=== PATIENT | female | born 1975 | race Caucasian/White ===

== ENCOUNTER 2018-06-10 23:04 | Emergency (ER) | payer MEDICARE, OTHER ==
[~2018-06-10] VITALS: Ht 160 cm; Wt 115.9 kg
[~2018-06-10 23:04] MED LIST: CABE0.5T2 PO; HYDR-3705 PO; INSU100V SQ; METF-960 PO; ROSU20 PO
[2018-06-10 23:24] LABS: GLUCOSE,POINT OF CARE 311 MG/DL (70-110)
[2018-06-10] MEDS ORDERED: BACL10TA PO (23:43)
[2018-06-10] MEDS ORDERED: LISI-662 PO (23:43)
[2018-06-10] MEDS ORDERED: CABE0.5T2 PO (23:43)
[2018-06-10] MEDS ORDERED: GABA-531 PO (23:43)
[2018-06-10] MEDS ORDERED: INSU100I15 SQ ×3 (23:43)
[2018-06-10] MEDS ORDERED: HYDR-4455 PO (23:43)
[2018-06-10] MEDS ORDERED: AMLO-512 PO (23:43)
[2018-06-11 00:59] LABS: BASOPHILS % (AUTO) 0.6 % (0.0-2.0); EOSINOPHILS % (AUTO) 2.7 % (1.0-6.0); HEMATOCRIT 36.9 % (36-46); HEMOGLOBIN 11.8 g/dL (12.0-16.0); LYMPHOCYTES # (AUTO) 1.7 K/uL (1.0-4.8); LYMPHOCYTES % (AUTO) 25.1 % (22.0-44.0); MEAN CORPUSCULAR HEMOGLOBIN 24.5 pg (26.0-34.0); MEAN CORPUSCULAR HGB CONC 31.8 G/dL (31.0-37.0); MEAN CORPUSCULAR VOLUME 77 fL (80-100); MONOCYTES # (AUTO) 0.6 K/uL (0.1-1.0); MONOCYTES % (AUTO) 8.4 % (2.0-9.0); NEUTROPHILS # (AUTO) 4.2 K/uL (1.8-7.7); NEUTROPHILS % (AUTO) 63.2 % (40.0-70.0); PLATELET COUNT (AUTO) 339 K/uL (150-450); RED CELL DISTRIBUTION WIDTH 14.6 % (11.5-14.5)
[2018-06-11 01:09] LABS: ANION GAP 9 mmol/L (8-16); CALCIUM, TOTAL 9.4 mg/dL (8.8-10.5); CARBON DIOXIDE 27 mmol/L (22-29); CHLORIDE 102 mmol/L (98-107); CREATININE 1.29 mg/dL (0.60-1.30); GLOMERULAR FILTR. RATE CALC 45 mL/min (>60); GLUCOSE,RANDOM 329 mg/dL (70-110); POTASSIUM 5.3 mmol/L (3.5-5.1); SODIUM SERUM 138 mmol/L (136-145); UREA NITROGEN, BLOOD 16 mg/dL (7-18)
[2018-06-11 01:17] LABS: APPEARANCE,URINE CLOUDY (CLEAR); BILIRUBIN,URINE NEGATIVE (NEGATIVE); GLUCOSE, URINE (UA) >=1000 mg/dL (NEGATIVE); KETONES,URINE NEGATIVE (NEGATIVE); LEUKOCYTE ESTERASE ,URINE NEGATIVE (NEGATIVE); NITRATE,URINE NEGATIVE (NEGATIVE); OCCULT BLOOD,URINE MODERATE (NEGATIVE); PH,URINE 5.5 (5.0-8.0); PROTEIN,URINE SEE CONFIRM (NEGATIVE); UROBILINOGEN,URINE 0.2 mg/dL (<=1.0)
[2018-06-11 01:21] LABS: AMPHET/METH SCREEN,URINE NEGATIVE (NEGATIVE); BARBITURATE SCREEN, URINE NEGATIVE (NEGATIVE); BENZODIAZEPINES SCREEN,URINE NEGATIVE (NEGATIVE); CANNABINOID SCREEN,URINE NEGATIVE (NEGATIVE); COCAINE SCREEN,URINE NEGATIVE (NEGATIVE); METHADONE SCREEN, URINE NEGATIVE (NEGATIVE); OPIATE SCREEN,URINE POSITIVE (NEGATIVE); PHENCYCLIDINE SCREEN,URINE NEGATIVE (NEGATIVE)
[2018-06-11 01:22] LABS: ALANINE AMINOTRANSFERASE 45 U/L (12-78); ALKALINE PHOSPHATASE 65 U/L (46-116); ASPARTATE AMINOTRANSFERASE 21 U/L (15-37); BILIRUBIN,TOTAL 0.4 mg/dL (0.1-1.0); HCG,QUANTITATIVE < 1 mIU/mL (0-6); LIPASE 82 U/L (73-393); TOTAL PROTEIN, SERUM 7.9 g/dL (6.4-8.2)
[2018-06-11 01:27] LABS: BACTERIA,URINE Rare /HPF (None Seen)
[2018-06-11 01:28] LABS: SULFOSALICYLIC ACID,URINE 4+ (Negative); YEAST,URINE Rare /HPF (None Seen)
[2018-06-11 01:29] LABS: SQUAMOUS EPITHELIAL CELL,UR Moderate /LPF (None Seen)
[2018-06-11] MEDS ORDERED: SODIUM CHLORIDE 0.9% 1,000 ML IV ONE (01:30)
[2018-06-11] MEDS ORDERED: ACETAMINOPHEN 500 MG TABLET PO ONE (01:30)
[2018-06-11] MEDS ORDERED: KETOROLAC TROMETHAMINE 30 MG/ML VIAL IVP ONE (01:30)
[2018-06-11] MEDS ORDERED: ONDANSETRON HCL 4 MG/2 ML VIAL IVP ONE (01:30)
[2018-06-11] MEDS ORDERED: DIPHENOXYLATE/ATROP 2.5-0.025 MG TABLET PO ONE (01:30)
[2018-06-11 02:46] VITALS: BP 141/90
== END 2018-06-11 02:50 | disposition home or self-care (01) ==
LOC: EMS 23:05
DX: N39.0 Urinary tract infection, site not specified (principal); E11.43 Type 2 diabetes mellitus with diabetic autonomic (poly)neuropathy; E11.65 Type 2 diabetes mellitus with hyperglycemia; K31.84 Gastroparesis; K21.9 Gastro-esophageal reflux disease without esophagitis; E66.9 Obesity, unspecified; F31.9 Bipolar disorder, unspecified; E78.00 Pure hypercholesterolemia, unspecified; I10 Essential (primary) hypertension; G89.29 Other chronic pain; Z88.0 Allergy status to penicillin; Z88.6 Allergy status to analgesic agent; Z88.8 Allergy status to other drugs, medicaments and biological substances; Z79.4 Long term (current) use of insulin; Z79.899 Other long term (current) drug therapy; Z68.42 Body mass index [BMI] 45.0-49.9, adult
CPT/HCPCS: 36415; 80053; 80307; 81001; 82962; 83690; 84702; 85025; 96361; 96374; 96375; 99283; G0480; J1885; J2405; J7030

== ENCOUNTER 2018-10-24 06:50 | Emergency (ER) | payer MEDICARE, OTHER ==
[~2018-10-24] VITALS: Ht 160 cm; Wt 116.4 kg
[~2018-10-24 06:50] MED LIST changes: +AMLO-512 PO; +BACL10TA PO; +GABA-531 PO; -HYDR-3705 PO; +HYDR-4455 PO; +INSU100I15 SQ; -INSU100V SQ; +LISI-662 PO; -METF-960 PO; -ROSU20 PO; +ROSU20TA23 PO
[2018-10-24 07:04] LABS: GLUCOSE,POINT OF CARE 147 MG/DL (70-110)
[2018-10-24] MEDS ORDERED: KETOROLAC TROMETHAMINE 30 MG/ML VIAL IM ONE (08:15)
[2018-10-24] MEDS ORDERED: PB/HYOSCY/ATR/SCOP/LIDO/MAALOX 55 ML BOTTLE PO ONE (08:15)
[2018-10-24 08:42] LABS: BASOPHILS % (AUTO) 0.7 % (0.0-2.0); EOSINOPHILS % (AUTO) 3.4 % (1.0-6.0); HEMATOCRIT 31.1 % (36-46); HEMOGLOBIN 10.1 g/dL (12.0-16.0); LYMPHOCYTES % (AUTO) 29.5 % (22.0-44.0); MEAN CORPUSCULAR HEMOGLOBIN 24.2 pg (26.0-34.0); MEAN CORPUSCULAR HGB CONC 32.5 G/dL (31.0-37.0); MEAN CORPUSCULAR VOLUME 75 fL (80-100); MONOCYTES # (AUTO) 0.6 K/uL (0.1-1.0); MONOCYTES % (AUTO) 9.5 % (2.0-9.0); NEUTROPHILS # (AUTO) 3.8 K/uL (1.8-7.7); NEUTROPHILS % (AUTO) 56.9 % (40.0-70.0); PLATELET COUNT (AUTO) 314 K/uL (150-450); RED BLOOD CELL COUNT(AUTO) 4.17 MIL/uL (4.00-5.20)
[2018-10-24 08:52] LABS: CALCIUM, TOTAL 9.1 mg/dL (8.8-10.5); CREATININE 1.68 mg/dL (0.60-1.30); POTASSIUM 4.3 mmol/L (3.5-5.1)
[2018-10-24 08:58] LABS: ALBUMIN 3.1 g/dL (3.4-5.0); BILIRUBIN,TOTAL 0.1 mg/dL (0.1-1.0); TOTAL PROTEIN, SERUM 6.5 g/dL (6.4-8.2)
[2018-10-24 09:55] VITALS: BP 143/84
== END 2018-10-24 10:21 | disposition home or self-care (01) ==
LOC: EMS 06:54
DX: R10.13 Epigastric pain (principal); N28.9 Disorder of kidney and ureter, unspecified; E11.9 Type 2 diabetes mellitus without complications; E78.00 Pure hypercholesterolemia, unspecified; I10 Essential (primary) hypertension; F31.9 Bipolar disorder, unspecified; Z79.899 Other long term (current) drug therapy; Z88.6 Allergy status to analgesic agent; Z88.1 Allergy status to other antibiotic agents; Z88.8 Allergy status to other drugs, medicaments and biological substances
CPT/HCPCS: 36415; 71045; 80053; 82962; 83690; 84484; 85025; 93005; 96372; 99284; J1885

== ENCOUNTER 2019-02-01 03:50 | Emergency (ER) | payer MEDICARE, OTHER ==
[~2019-02-01] VITALS: Ht 160 cm; Wt 115.9 kg
[~2019-02-01 03:50] MED LIST changes: -AMLO-512 PO; +AMLO10TA7 PO
[2019-02-01] MEDS ORDERED: METO50 PO (04:00)
[2019-02-01 04:10] LABS: GLUCOSE,POINT OF CARE 198 MG/DL (70-110)
[2019-02-01] MEDS ORDERED: KETOROLAC TROMETHAMINE 60 MG/2 ML VIAL IM ONE (05:15)
[2019-02-01 05:24] LABS: APPEARANCE,URINE CLEAR (CLEAR); BILIRUBIN,URINE NEGATIVE (NEGATIVE); GLUCOSE, URINE (UA) 100 mg/dL (NEGATIVE); KETONES,URINE NEGATIVE (NEGATIVE); LEUKOCYTE ESTERASE ,URINE NEGATIVE (NEGATIVE); NITRATE,URINE NEGATIVE (NEGATIVE); OCCULT BLOOD,URINE SMALL (NEGATIVE); PH,URINE 5.5 (5.0-8.0); PROTEIN,URINE SEE CONFIRM (NEGATIVE); UROBILINOGEN,URINE 0.2 mg/dL (<=1.0)
[2019-02-01 05:27] LABS: SULFOSALICYLIC ACID,URINE 3+ (Negative)
[2019-02-01 05:38] LABS: BACTERIA,URINE Few /HPF (None Seen); SQUAMOUS EPITHELIAL CELL,UR Rare /LPF (None Seen); WBC,URINE 0-2 /HPF (0-5)
[2019-02-01 06:05] VITALS: BP 155/89
== END 2019-02-01 06:08 | disposition home or self-care (01) ==
LOC: EMS 03:51
DX: R10.30 Lower abdominal pain, unspecified (principal); I10 Essential (primary) hypertension; E11.9 Type 2 diabetes mellitus without complications; E78.00 Pure hypercholesterolemia, unspecified; F31.9 Bipolar disorder, unspecified; Z88.1 Allergy status to other antibiotic agents; Z88.6 Allergy status to analgesic agent; Z88.8 Allergy status to other drugs, medicaments and biological substances; Z79.4 Long term (current) use of insulin; Z79.899 Other long term (current) drug therapy
CPT/HCPCS: 81001; 82962; 96372; 99283; J1885

== ENCOUNTER 2019-05-14 04:44 | Emergency (ER) | payer MEDICARE, OTHER ==
[~2019-05-14] VITALS: Ht 160 cm; Wt 115.9 kg
[~2019-05-14 04:44] MED LIST changes: -AMLO10TA7 PO; +METO50 PO
[2019-05-14] MEDS ORDERED: Fioricet PO (04:52)
[2019-05-14 05:13] LABS: GLUCOSE,POINT OF CARE 112 MG/DL (70-110)
[2019-05-14] MEDS ORDERED: CloNIDine HCL 0.2 MG TABLET PO ONE (05:30)
[2019-05-14] MEDS ORDERED: LORazepam 1 MG TABLET PO ONE (05:30)
[2019-05-14 06:06] VITALS: BP 174/74
[2019-05-14 06:07] LABS: BASOPHILS % (AUTO) 0.7 % (0.0-2.0); EOSINOPHILS % (AUTO) 3.5 % (1.0-6.0); HEMATOCRIT 35.2 % (36-46); HEMOGLOBIN 11.2 g/dL (12.0-16.0); LYMPHOCYTES # (AUTO) 2.2 K/uL (1.0-4.8); LYMPHOCYTES % (AUTO) 31.7 % (22.0-44.0); MEAN CORPUSCULAR HGB CONC 31.7 G/dL (31.0-37.0); MEAN CORPUSCULAR VOLUME 76 fL (80-100); MONOCYTES # (AUTO) 0.6 K/uL (0.1-1.0); MONOCYTES % (AUTO) 8.7 % (2.0-9.0); NEUTROPHILS # (AUTO) 3.9 K/uL (1.8-7.7); NEUTROPHILS % (AUTO) 55.4 % (40.0-70.0); PLATELET COUNT (AUTO) 334 K/uL (150-450); RED BLOOD CELL COUNT(AUTO) 4.66 MIL/uL (4.00-5.20); RED CELL DISTRIBUTION WIDTH 13.9 % (11.5-14.5)
[2019-05-14 06:22] LABS: CALCIUM, TOTAL 9.1 mg/dL (8.8-10.5); CREATININE 1.57 mg/dL (0.60-1.30); POTASSIUM 4.5 mmol/L (3.5-5.1)
[2019-05-14 06:28] LABS: ALBUMIN 3.6 g/dL (3.4-5.0); BILIRUBIN,TOTAL 0.2 mg/dL (0.1-1.0); TOTAL PROTEIN, SERUM 7.3 g/dL (6.4-8.2)
== END 2019-05-14 06:50 | disposition home or self-care (01) ==
LOC: EMS 04:44
DX: I10 Essential (primary) hypertension (principal); R20.2 Paresthesia of skin; F31.9 Bipolar disorder, unspecified; E11.9 Type 2 diabetes mellitus without complications; E78.00 Pure hypercholesterolemia, unspecified; G89.29 Other chronic pain; Z88.0 Allergy status to penicillin; Z88.6 Allergy status to analgesic agent; Z88.8 Allergy status to other drugs, medicaments and biological substances; Z79.4 Long term (current) use of insulin; Z79.899 Other long term (current) drug therapy
CPT/HCPCS: 93005

== ENCOUNTER 2019-07-27 10:23 | Emergency (ER) | payer MEDICARE, OTHER ==
[~2019-07-27] VITALS: Ht 167.6 cm; Wt 100.0 kg
[~2019-07-27 10:23] MED LIST changes: +Fioricet PO
[2019-07-27] MEDS ORDERED: ACETAMINOPHEN 500 MG TABLET PO ONE (11:15)
[2019-07-27] MEDS ORDERED: CLINDAMYCIN HCL 150 MG CAPSULE PO ONE (11:15)
[2019-07-27 11:32] LABS: GLUCOSE,POINT OF CARE 65 MG/DL (70-110)
[2019-07-27 11:55] VITALS: BP 127/81
[2019-07-27 12:20] LABS: GLUCOSE,POINT OF CARE 94 MG/DL (70-110)
== END 2019-07-27 12:11 | disposition home or self-care (01) ==
LOC: EMS 10:24
DX: K02.9 Dental caries, unspecified (principal); I10 Essential (primary) hypertension; E11.9 Type 2 diabetes mellitus without complications; E78.00 Pure hypercholesterolemia, unspecified; F31.9 Bipolar disorder, unspecified; Z88.1 Allergy status to other antibiotic agents; Z88.6 Allergy status to analgesic agent; Z88.8 Allergy status to other drugs, medicaments and biological substances; Z79.4 Long term (current) use of insulin; Z79.899 Other long term (current) drug therapy

== ENCOUNTER 2019-07-29 04:06 | Emergency (ER) | payer MEDICARE, OTHER ==
[~2019-07-29] VITALS: Ht 160 cm; Wt 112.7 kg
[2019-07-29 04:19] VITALS: BP 160/80
[2019-07-29 04:39] LABS: GLUCOSE,POINT OF CARE 109 MG/DL (70-110)
== END 2019-07-29 04:59 | disposition left against medical advice (07) ==
LOC: EMS 04:06
DX: R51 Headache (principal); Z53.21 Procedure and treatment not carried out due to patient leaving prior to being seen by health care provider

== ENCOUNTER 2019-08-22 22:13 | Inpatient (IN) | payer MEDICARE, OTHER ==
[~2019-08-22] VITALS: Ht 160 cm; Wt 107.5 kg
[2019-08-22] MEDS ORDERED: METO50 PO (22:28)
[2019-08-22] MEDS ORDERED: NITROGLYCERIN 0.4 MG SUBLINGUAL TABLET #25 SL ONE (23:15)
[2019-08-22] MEDS ORDERED: CLOPIDOGREL BISULFATE 75 MG TABLET PO ONE (23:15)
[2019-08-23 00:18] LABS: BASOPHILS % (AUTO) 0.8 % (0.0-2.0); HEMATOCRIT 35.7 % (36-46); HEMOGLOBIN 11.3 g/dL (12.0-16.0); LYMPHOCYTES % (AUTO) 22.3 % (22.0-44.0); MEAN CORPUSCULAR HEMOGLOBIN 23.8 pg (26.0-34.0); MEAN CORPUSCULAR HGB CONC 31.7 G/dL (31.0-37.0); MEAN CORPUSCULAR VOLUME 75 fL (80-100); MONOCYTES # (AUTO) 0.7 K/uL (0.1-1.0); MONOCYTES % (AUTO) 7.2 % (2.0-9.0); NEUTROPHILS # (AUTO) 6.2 K/uL (1.8-7.7); NEUTROPHILS % (AUTO) 67.7 % (40.0-70.0); PLATELET COUNT (AUTO) 343 K/uL (150-450); RED BLOOD CELL COUNT(AUTO) 4.75 MIL/uL (4.00-5.20); RED CELL DISTRIBUTION WIDTH 14.4 % (11.5-14.5)
[2019-08-23 00:24] LABS: ANION GAP 12 mmol/L (8-16); CALCIUM, TOTAL 9.6 mg/dL (8.8-10.5); CARBON DIOXIDE 23 mmol/L (22-29); CHLORIDE 103 mmol/L (98-107); CREATININE 1.47 mg/dL (0.60-1.30); GLOMERULAR FILTR. RATE CALC 47 mL/min (>60); GLUCOSE,RANDOM 139 mg/dL (70-110); POTASSIUM 4.8 mmol/L (3.5-5.1); SODIUM SERUM 138 mmol/L (136-145); UREA NITROGEN, BLOOD 28 mg/dL (7-18)
[2019-08-23 00:39] LABS: ALANINE AMINOTRANSFERASE 34 U/L (12-78); ALBUMIN 3.5 g/dL (3.4-5.0); ALKALINE PHOSPHATASE 68 U/L (46-116); ASPARTATE AMINOTRANSFERASE 16 U/L (15-37); BILIRUBIN,TOTAL 0.2 mg/dL (0.1-1.0); HCG,QUANTITATIVE < 1 mIU/mL (0-6); LIPASE 68 U/L (73-393); TOTAL PROTEIN, SERUM 7.5 g/dL (6.4-8.2)
[2019-08-23] MEDS ORDERED: ONDANSETRON HCL 4 MG/2 ML VIAL IVP PRN (00:45)
[2019-08-23] MEDS ORDERED: 0.9% SODIUM CHLORIDE 10 ML SYRINGE IVP PRN ×2 (00:45→17:00)
[2019-08-23] MEDS ORDERED: NITROGLYCERIN 2% (1 GM=INCH) PACKET TP ONE (01:00)
[2019-08-23 01:11] LABS: INR 0.9 (0.9-1.1); PROTHROMBIN TIME 9.6 SEC (9.4-11.6)
[2019-08-23 01:27] LABS: CREATINE KINASE, TOTAL ONLY 323 U/L (26-192)
[2019-08-23] MEDS ORDERED: MORPHINE SULFATE 2 MG/ML SYRINGE IVP ONE (01:30)
[2019-08-23] MEDS ORDERED: METOPROLOL TARTRATE 50 MG TABLET PO ONE (01:30)
[2019-08-23] MEDS ORDERED: ZOLPIDEM TARTRATE 5 MG TABLET PO ONE (01:30)
[2019-08-23] MEDS ORDERED: ONDANSETRON HCL 4 MG/2 ML VIAL IVP ONE (01:30)
[2019-08-23 01:49] LABS: B-TYPE NATRIURETIC PEPTIDE 164 pg/mL (0-100)
[2019-08-23] MEDS: ACETAMINOPHEN 325 MG TABLET PO PRN ×2 (04:26→08:38)
[2019-08-23 05:03] VITALS: BP 150/84
[2019-08-23 07:59] VITALS: BP 153/79
[2019-08-23 11:11] VITALS: BP 151/79
[2019-08-23] MEDS ORDERED: MORPHINE SULFATE 2 MG/ML SYRINGE IVP PRN (11:45)
[2019-08-23] MEDS ORDERED: DEXTROSE 50%-WATER 25 GM/50 ML SYRINGE IVP PRN (11:45)
[2019-08-23] MEDS ORDERED: GABAPENTIN 300 MG CAPSULE PO PRN (11:45)
[2019-08-23] MEDS: INSULIN LISPRO 100 UNITS/ML SQ PRN ×3 (12:19→22:24)
[2019-08-23] MEDS: NITROGLYCERIN 2% (1 GM=INCH) PACKET TP SCH ×3 (14:20→23:00)
[2019-08-23] MEDS: METOPROLOL TARTRATE 50 MG TABLET PO SCH ×2 (14:31→20:51)
[2019-08-23] MEDS: LISINOPRIL 20 MG TABLET PO SCH (14:32)
[2019-08-23] MEDS: HYDROCODONE/ACETAMINOPHEN 10-325 MG TABLET PO SCH ×2 (14:32→20:52)
[2019-08-23] MEDS: BACLOFEN 10 MG TABLET PO SCH ×2 (14:32→20:52)
[2019-08-23] MEDS: ROSUVASTATIN CALCIUM 20 MG TABLET PO SCH (14:33)
[2019-08-23 15:03] VITALS: BP 171/88
[2019-08-23] MEDS ORDERED: ACETAMINOPHEN 325 MG TABLET PO PRN (17:00)
[2019-08-23] MEDS ORDERED: MAGNESIUM HYDROXIDE SUSPENSION 30 ML UDCUP PO PRN (17:00)
[2019-08-23] MEDS ORDERED: OxyCODONE HCL/ACETAMINOPHEN 5-325 MG TABLET PO PRN ×2 (17:00)
[2019-08-23 19:51] VITALS: BP 142/77
[2019-08-23] MEDS: DOCUSATE SODIUM 100 MG CAPSULE PO SCH (20:51)
[2019-08-23] MEDS: CLOPIDOGREL BISULFATE 75 MG TABLET PO SCH (20:52)
[2019-08-23] MEDS: ZOLPIDEM TARTRATE 5 MG TABLET PO SCH (22:59)
[2019-08-23 23:32] VITALS: BP 139/80
[2019-08-24 04:26] VITALS: BP 156/75
[2019-08-24 05:15] LABS: GLUCOMETER DEV NAME(LOC) 5N.1; GLUCOSE,POINT OF CARE 230 MG/DL (70-110)
[2019-08-24] MEDS: NITROGLYCERIN 2% (1 GM=INCH) PACKET TP SCH ×2 (05:41→08:59)
[2019-08-24] MEDS: INSULIN LISPRO 100 UNITS/ML SQ PRN ×5 (06:03→22:16)
[2019-08-24 06:49] LABS: BASOPHILS % (AUTO) 0.9 % (0.0-2.0); EOSINOPHILS % (AUTO) 2.3 % (1.0-6.0); HEMATOCRIT 32.7 % (36-46); HEMOGLOBIN 10.3 g/dL (12.0-16.0); LYMPHOCYTES # (AUTO) 1.6 K/uL (1.0-4.8); LYMPHOCYTES % (AUTO) 22.1 % (22.0-44.0); MEAN CORPUSCULAR HEMOGLOBIN 23.8 pg (26.0-34.0); MEAN CORPUSCULAR HGB CONC 31.5 G/dL (31.0-37.0); MEAN CORPUSCULAR VOLUME 75 fL (80-100); MONOCYTES # (AUTO) 0.7 K/uL (0.1-1.0); MONOCYTES % (AUTO) 10.2 % (2.0-9.0); NEUTROPHILS # (AUTO) 4.6 K/uL (1.8-7.7); NEUTROPHILS % (AUTO) 64.5 % (40.0-70.0); PLATELET COUNT (AUTO) 306 K/uL (150-450); RED BLOOD CELL COUNT(AUTO) 4.34 MIL/uL (4.00-5.20); RED CELL DISTRIBUTION WIDTH 14.5 % (11.5-14.5)
[2019-08-24 06:55] LABS: CALCIUM, TOTAL 9.1 mg/dL (8.8-10.5); CREATININE 1.37 mg/dL (0.60-1.30); POTASSIUM 5.7 mmol/L (3.5-5.1)
[2019-08-24 07:36] VITALS: BP 139/72
[2019-08-24] MEDS: DOCUSATE SODIUM 100 MG CAPSULE PO SCH ×2 (08:46→21:00)
[2019-08-24] MEDS: ROSUVASTATIN CALCIUM 20 MG TABLET PO SCH (08:56)
[2019-08-24] MEDS: METOPROLOL TARTRATE 50 MG TABLET PO SCH ×2 (08:57→21:18)
[2019-08-24] MEDS: CLOPIDOGREL BISULFATE 75 MG TABLET PO SCH (08:58)
[2019-08-24] MEDS: LISINOPRIL 20 MG TABLET PO SCH (08:58)
[2019-08-24] MEDS: BACLOFEN 10 MG TABLET PO SCH ×2 (08:58→21:19)
[2019-08-24] MEDS: HYDROCODONE/ACETAMINOPHEN 10-325 MG TABLET PO SCH ×2 (08:58→21:19)
[2019-08-24 12:36] VITALS: BP 149/80
[2019-08-24] MEDS ORDERED: SODIUM POLYSTYRENE SULFONATE 15 GM/60 ML SUSPENSION BOTTLE PO ONE (13:15)
[2019-08-24 15:24] LABS: GLUCOMETER DEV NAME(LOC) 5S.1; GLUCOSE,POINT OF CARE 289 MG/DL (70-110)
[2019-08-24 15:24] LABS: GLUCOMETER DEV NAME(LOC) 5S.1; GLUCOSE,POINT OF CARE 292 MG/DL (70-110)
[2019-08-24 15:24] LABS: GLUCOMETER DEV NAME(LOC) 5S.1; GLUCOSE,POINT OF CARE 319 MG/DL (70-110)
[2019-08-24 15:24] LABS: GLUCOMETER DEV NAME(LOC) 5S.1; GLUCOSE,POINT OF CARE 217 MG/DL (70-110)
[2019-08-24 15:24] LABS: GLUCOMETER DEV NAME(LOC) 5S.1; GLUCOSE,POINT OF CARE 155 MG/DL (70-110)
[2019-08-24 16:04] VITALS: BP 157/91
[2019-08-24 20:42] VITALS: BP 158/93
[2019-08-24] MEDS: ZOLPIDEM TARTRATE 5 MG TABLET PO SCH (21:19)
[2019-08-24] MEDS: ONDANSETRON HCL 4 MG/2 ML VIAL IVP PRN (21:20)
[2019-08-25 01:03] VITALS: BP 161/76
[2019-08-25] MEDS: NITROGLYCERIN 2% (1 GM=INCH) PACKET TP SCH ×5 (05:02→23:46)
[2019-08-25 05:15] VITALS: BP 148/72
[2019-08-25] MEDS: INSULIN LISPRO 100 UNITS/ML SQ PRN ×4 (06:32→22:36)
[2019-08-25 06:56] LABS: GLUCOMETER DEV NAME(LOC) 5S.1; GLUCOSE,POINT OF CARE 309 MG/DL (70-110)
[2019-08-25 06:56] LABS: GLUCOMETER DEV NAME(LOC) 5N.1; GLUCOSE,POINT OF CARE 176 MG/DL (70-110)
[2019-08-25 06:57] LABS: GLUCOMETER DEV NAME(LOC) 5S.1; GLUCOSE,POINT OF CARE 355 MG/DL (70-110)
[2019-08-25 07:26] VITALS: BP 143/81
[2019-08-25 07:33] LABS: CALCIUM, TOTAL 9.4 mg/dL (8.8-10.5); CREATININE 1.49 mg/dL (0.60-1.30); POTASSIUM 5.2 mmol/L (3.5-5.1)
[2019-08-25] MEDS: LISINOPRIL 20 MG TABLET PO SCH (08:24)
[2019-08-25] MEDS: METOPROLOL TARTRATE 50 MG TABLET PO SCH ×2 (08:24→20:55)
[2019-08-25] MEDS: BACLOFEN 10 MG TABLET PO SCH ×2 (08:24→20:55)
[2019-08-25] MEDS: CLOPIDOGREL BISULFATE 75 MG TABLET PO SCH (08:24)
[2019-08-25] MEDS: HYDROCODONE/ACETAMINOPHEN 10-325 MG TABLET PO SCH ×2 (08:24→20:55)
[2019-08-25] MEDS: ROSUVASTATIN CALCIUM 20 MG TABLET PO SCH (08:32)
[2019-08-25] MEDS: DOCUSATE SODIUM 100 MG CAPSULE PO SCH ×2 (08:33→20:55)
[2019-08-25] MEDS: ONDANSETRON HCL 4 MG/2 ML VIAL IVP PRN (09:52)
[2019-08-25 11:41] LABS: GLUCOMETER DEV NAME(LOC) 5N.1; GLUCOSE,POINT OF CARE 327 MG/DL (70-110)
[2019-08-25 11:42] VITALS: BP 137/72
[2019-08-25] MEDS ORDERED: SODIUM POLYSTYRENE SULFONATE 15 GM/60 ML SUSPENSION BOTTLE PO ONE (12:45)
[2019-08-25 15:42] VITALS: BP 141/75
[2019-08-25 19:07] LABS: GLUCOMETER DEV NAME(LOC) 5S.1; GLUCOSE,POINT OF CARE 295 MG/DL (70-110)
[2019-08-25 20:47] VITALS: BP 159/94
[2019-08-25] MEDS: ZOLPIDEM TARTRATE 5 MG TABLET PO SCH (20:54)
[2019-08-25] MEDS: RANOLAZINE 500 MG ER TABLET PO SCH (20:54)
[2019-08-26] VITALS: BP 142/78
[2019-08-26 01:52] LABS: GLUCOMETER DEV NAME(LOC) 5S.1; GLUCOSE,POINT OF CARE 272 MG/DL (70-110)
[2019-08-26 04:35] VITALS: BP 138/72
[2019-08-26] MEDS: NITROGLYCERIN 2% (1 GM=INCH) PACKET TP SCH ×3 (05:30→17:07)
[2019-08-26] MEDS: INSULIN LISPRO 100 UNITS/ML SQ PRN ×3 (06:35→17:08)
[2019-08-26 07:08] LABS: GLUCOMETER DEV NAME(LOC) 5S.1; GLUCOSE,POINT OF CARE 191 MG/DL (70-110)
[2019-08-26 07:27] VITALS: BP 148/73
[2019-08-26 07:42] LABS: CALCIUM, TOTAL 8.9 mg/dL (8.8-10.5); CREATININE 1.75 mg/dL (0.60-1.30)
[2019-08-26] MEDS ORDERED: SODIUM POLYSTYRENE SULFONATE 15 GM/60 ML SUSPENSION BOTTLE PO ONE ×3 (08:00→18:00)
[2019-08-26] MEDS: METOPROLOL TARTRATE 50 MG TABLET PO SCH (08:32)
[2019-08-26] MEDS: RANOLAZINE 500 MG ER TABLET PO SCH (08:33)
[2019-08-26] MEDS: HYDROCODONE/ACETAMINOPHEN 10-325 MG TABLET PO SCH (08:34)
[2019-08-26] MEDS: ROSUVASTATIN CALCIUM 20 MG TABLET PO SCH (08:35)
[2019-08-26] MEDS: CLOPIDOGREL BISULFATE 75 MG TABLET PO SCH (08:35)
[2019-08-26] MEDS: BACLOFEN 10 MG TABLET PO SCH (08:35)
[2019-08-26] MEDS: DOCUSATE SODIUM 100 MG CAPSULE PO SCH (08:36)
[2019-08-26] MEDS: ONDANSETRON HCL 4 MG/2 ML VIAL IVP PRN (08:57)
[2019-08-26] MEDS ORDERED: CLOP75TA14 PO (10:03)
[2019-08-26 11:21] VITALS: BP 127/84
[2019-08-26 11:54] LABS: GLUCOMETER DEV NAME(LOC) 5S.1; GLUCOSE,POINT OF CARE 396 MG/DL (70-110)
[2019-08-26 15:55] VITALS: BP 126/87
[2019-08-26 19:37] LABS: GLUCOMETER DEV NAME(LOC) 5S.1; GLUCOSE,POINT OF CARE 254 MG/DL (70-110)
== END 2019-08-26 18:30 | disposition home or self-care (01) | DRG 392 ==
LOC: EMS 22:13 → 5N 08-23 00:30
PROVIDERS: ADMIT Internal Medicine; ATTEND Internal Medicine
DX: K21.9 Gastro-esophageal reflux disease without esophagitis (principal); E87.1 Hypo-osmolality and hyponatremia; K86.1 Other chronic pancreatitis; Z68.41 Body mass index [BMI] 40.0-44.9, adult; R07.89 Other chest pain; E11.22 Type 2 diabetes mellitus with diabetic chronic kidney disease; E87.5 Hyperkalemia; N18.3 Chronic kidney disease, stage 3 (moderate); E78.5 Hyperlipidemia, unspecified; I12.9 Hypertensive chronic kidney disease with stage 1 through stage 4 chronic kidney disease, or unspecified chronic kidney disease; D49.7 Neoplasm of unspecified behavior of endocrine glands and other parts of nervous system; F32.9 Major depressive disorder, single episode, unspecified; E78.00 Pure hypercholesterolemia, unspecified; E11.65 Type 2 diabetes mellitus with hyperglycemia; G89.29 Other chronic pain; E66.01 Morbid (severe) obesity due to excess calories; D64.9 Anemia, unspecified; R80.9 Proteinuria, unspecified; Z83.3 Family history of diabetes mellitus; Z88.8 Allergy status to other drugs, medicaments and biological substances; Z79.899 Other long term (current) drug therapy
CPT/HCPCS: 83036; 84132; 93005; J2270; J2405

== ENCOUNTER → 2019-08-28 | Outpatient (CLI) | payer MEDICARE, OTHER ==
[~2019-08-28] MED LIST changes: +CLOP75TA14 PO; -Fioricet PO; -LISI-662 PO
[2019-08-28 09:16] LABS: CREATININE 2.31 mg/dL (0.60-1.30)
== END | disposition home or self-care (01) ==
LOC: LABMN 08:39
PROVIDERS: ATTEND Internal Medicine
DX: E87.5 Hyperkalemia (principal)

== ENCOUNTER 2021-04-11 13:56 | Inpatient (IN) | payer MEDICARE, OTHER ==
[~2021-04-11] VITALS: Ht 160 cm; Wt 113.5 kg
[~2021-04-11 13:56] MED LIST changes: +GABA-1181 PO; -GABA-531 PO; -ROSU20TA23 PO; +ROSU20TA73 PO
[2021-04-11 14:22] LABS: BASOPHILS % (AUTO) 0.6 % (0.0-2.0); EOSINOPHILS % (AUTO) 2.3 % (1.0-6.0); HEMATOCRIT 31.7 % (36-46); HEMOGLOBIN 9.8 g/dL (12.0-16.0); LYMPHOCYTES # (AUTO) 1.2 K/uL (1.0-4.8); LYMPHOCYTES % (AUTO) 13.9 % (22.0-44.0); MEAN CORPUSCULAR HEMOGLOBIN 23.1 pg (26.0-34.0); MEAN CORPUSCULAR HGB CONC 31.1 G/dL (31.0-37.0); MEAN CORPUSCULAR VOLUME 74 fL (80-100); MONOCYTES # (AUTO) 0.5 K/uL (0.1-1.0); NEUTROPHILS # (AUTO) 6.8 K/uL (1.8-7.7); NEUTROPHILS % (AUTO) 77.2 % (40.0-70.0); PLATELET COUNT (AUTO) 295 K/uL (150-450); RED BLOOD CELL COUNT(AUTO) 4.26 MIL/uL (4.00-5.20); RED CELL DISTRIBUTION WIDTH 14.5 % (11.5-14.5)
[2021-04-11 14:31] LABS: CALCIUM, TOTAL 9.2 mg/dL (8.8-10.5); CREATININE 2.64 mg/dL (0.60-1.30); POTASSIUM 5.4 mmol/L (3.5-5.1)
[2021-04-11 14:37] LABS: ALBUMIN 3.6 g/dL (3.4-5.0); BILIRUBIN,TOTAL 0.1 mg/dL (0.1-1.0); TOTAL PROTEIN, SERUM 7.5 g/dL (6.4-8.2)
[2021-04-11] MEDS ORDERED: SODIUM CHLORIDE 0.9% 1,000 ML IV ONE (15:00)
[2021-04-11] MEDS ORDERED: METO200T49 PO (15:06)
[2021-04-11] MEDS ORDERED: AMLO10TA55 PO (15:06)
[2021-04-11] MEDS ORDERED: ZOLP10TA8 PO (15:06)
[2021-04-11] MEDS ORDERED: LIDO700A30 TP (15:06)
[2021-04-11] MEDS ORDERED: INSU500I SQ (15:06)
[2021-04-11] MEDS ORDERED: LISI40TA9 PO (15:06)
[2021-04-11] MEDS ORDERED: HYDR-4061 PO (15:06)
[2021-04-11] MEDS ORDERED: EZET10TA57 PO (15:06)
[2021-04-11] MEDS ORDERED: EMPA10TA PO (15:06)
[2021-04-11] MEDS ORDERED: CefTRIAXone 1 GM/DEXTROSE 50 ML IV ONE (15:23)
[2021-04-11] MEDS ORDERED: AZITHROMYCIN 500 MG/NS 250 ML IV ONE (15:23)
[2021-04-11] MEDS ORDERED: MORPHINE SULFATE 4 MG/ML SYRINGE IVP PRN (15:30)
[2021-04-11] MEDS ORDERED: ACETAMINOPHEN 325 MG TABLET PO PRN (15:30)
[2021-04-11] MEDS ORDERED: 0.9% SODIUM CHLORIDE 10 ML SYRINGE IVP PRN (15:30)
[2021-04-11] MEDS ORDERED: ONDANSETRON HCL 4 MG/2 ML VIAL IVP PRN ×2 (15:30→16:00)
[2021-04-11] MEDS ORDERED: HYDROmorphone 2 MG/ML VIAL IVP ONE (15:45)
[2021-04-11] MEDS ORDERED: HydrALAZINE HCL 20 MG/ML VIAL IVP PRN (15:45)
[2021-04-11] MEDS ORDERED: ONDANSETRON HCL 4 MG/2 ML VIAL IVP ONE (15:45)
[2021-04-11] MEDS ORDERED: DEXTROSE 50%-WATER 25 GM/50 ML SYRINGE IVP PRN (15:45)
[2021-04-11] MEDS ORDERED: BISACODYL 10 MG RECTAL RECTAL SUPPOSITORY PR PRN (16:00)
[2021-04-11] MEDS ORDERED: IPRATROPIUM BROMIDE 0.5 MG/2.5 ML NEB SOLUTION NEB PRN (16:00)
[2021-04-11] MEDS ORDERED: DOCUSATE SODIUM 100 MG CAPSULE PO PRN (16:00)
[2021-04-11] MEDS ORDERED: ALBUTEROL SULFATE 2.5 MG/0.5 ML NEB SOLUTION NEB PRN (16:00)
[2021-04-11] MEDS ORDERED: MAGNESIUM HYDROXIDE SUSPENSION 30 ML UDCUP PO PRN (16:00)
[2021-04-11 16:40] LABS: COVID AG,FIA SOURCE NASOPHARYNGEAL
[2021-04-11] MEDS: GABAPENTIN 100 MG CAPSULE PO SCH ×2 (16:45→22:00)
[2021-04-11] MEDS: SODIUM CHLORIDE 0.9% 1,000 ML IV SCH (16:50)
[2021-04-11] MEDS ORDERED: SODIUM ZIRCONIUM CYCLOSILICATE 5 GM POWDER PACKET PO ONE (17:00)
[2021-04-11 17:11] LABS: INFLUENZA TYPE A NEGATIVE FOR TYPE A (NEGATIVE); INFLUENZA TYPE B NEGATIVE FOR TYPE B (NEGATIVE)
[2021-04-11 18:40] LABS: APPEARANCE,URINE CLEAR (CLEAR); BILIRUBIN,URINE NEGATIVE (NEGATIVE); GLUCOSE, URINE (UA) 100 mg/dL (NEGATIVE); KETONES,URINE NEGATIVE (NEGATIVE); LEUKOCYTE ESTERASE ,URINE NEGATIVE (NEGATIVE); NITRATE,URINE NEGATIVE (NEGATIVE); OCCULT BLOOD,URINE SMALL (NEGATIVE); PH,URINE 5.5 (5.0-8.0); PROTEIN,URINE SEE CONFIRM (NEGATIVE); UROBILINOGEN,URINE 0.2 mg/dL (<=1.0)
[2021-04-11 18:45] LABS: AMPHET/METH SCREEN,URINE NEGATIVE (NEGATIVE); BARBITURATE SCREEN, URINE NEGATIVE (NEGATIVE); BENZODIAZEPINES SCREEN,URINE NEGATIVE (NEGATIVE); CANNABINOID SCREEN,URINE NEGATIVE (NEGATIVE); COCAINE SCREEN,URINE NEGATIVE (NEGATIVE); METHADONE SCREEN, URINE NEGATIVE (NEGATIVE); OPIATE SCREEN,URINE POSITIVE (NEGATIVE)
[2021-04-11 18:46] LABS: GLUCOMETER DEV NAME(LOC) ERT.5; GLUCOSE,POINT OF CARE 145 MG/DL (70-110)
[2021-04-11 18:56] LABS: BACTERIA,URINE Rare /HPF (None Seen); SQUAMOUS EPITHELIAL CELL,UR Moderate /LPF (None Seen); SULFOSALICYLIC ACID,URINE 4+ (Negative); WBC,URINE 0-2 /HPF (0-5); YEAST,URINE Few /HPF (None Seen)
[2021-04-11 19:24] LABS: PHENCYCLIDINE SCREEN,URINE NEGATIVE (NEGATIVE)
[2021-04-11] MEDS: HYDROCODONE/ACETAMINOPHEN 5-325 MG TABLET PO PRN (22:00)
[2021-04-11] MEDS ORDERED: ZOLPIDEM TARTRATE 5 MG TABLET PO ONE (23:00)
[2021-04-11 23:41] VITALS: BP 154/77
[2021-04-12] MEDS ORDERED: INFLUENZA VIRUS VACCINE QVS 2021-22 (6MO+)/PF 60 MCG/0.5 ML SYRINGE IM. ONE (01:30)
[2021-04-12] MEDS ORDERED: BENZONATATE 100 MG CAPSULE PO ONE (02:45)
[2021-04-12 03:54] LABS: GLUCOMETER DEV NAME(LOC) 5S.1; GLUCOSE,POINT OF CARE 117 MG/DL (70-110)
[2021-04-12 05:35] VITALS: BP 150/84
[2021-04-12] MEDS: HYDROCODONE/ACETAMINOPHEN 5-325 MG TABLET PO PRN ×3 (05:53→20:11)
[2021-04-12] MEDS: INSULIN LISPRO 100 UNITS/ML SQ PRN ×5 (05:53→20:11)
[2021-04-12] MEDS: DOXYCYCLINE HYCLATE 100 MG in DEXTROSE 5%-WATER 100 ML IV SCH ×2 (05:54→17:56)
[2021-04-12 07:05] VITALS: BP 144/78
[2021-04-12] MEDS: EZETIMIBE 10 MG TABLET PO SCH (08:58)
[2021-04-12] MEDS: AmLODIPine BESYLATE 10 MG TABLET PO SCH (08:58)
[2021-04-12] MEDS: GABAPENTIN 100 MG CAPSULE PO SCH ×3 (08:58→20:10)
[2021-04-12] MEDS: CLOPIDOGREL BISULFATE 75 MG TABLET PO SCH (08:59)
[2021-04-12] MEDS: ROSUVASTATIN CALCIUM 20 MG TABLET PO SCH (08:59)
[2021-04-12] MEDS: SODIUM CHLORIDE 0.9% 1,000 ML IV SCH ×2 (09:07→20:21)
[2021-04-12] MEDS: LIDOCAINE 5% TRANSDERMAL PATCH TD SCH (09:15)
[2021-04-12] MEDS: PANTOPRAZOLE SODIUM 40 MG DR TABLET PO SCH (09:15)
[2021-04-12 10:24] LABS: GLUCOMETER DEV NAME(LOC) 5S.2B; GLUCOSE,POINT OF CARE 184 MG/DL (70-110)
[2021-04-12 10:24] LABS: GLUCOMETER DEV NAME(LOC) 5S.2B; GLUCOSE,POINT OF CARE 199 MG/DL (70-110)
[2021-04-12] MEDS ORDERED: CABERGOLINE PO SCH (10:45)
[2021-04-12 11:15] VITALS: BP 146/80
[2021-04-12 12:02] LABS: BASOPHILS % (AUTO) 0.5 % (0.0-2.0); EOSINOPHILS % (AUTO) 2.7 % (1.0-6.0); LYMPHOCYTES # (AUTO) 1.1 K/uL (1.0-4.8); MEAN CORPUSCULAR HEMOGLOBIN 23.5 pg (26.0-34.0); MEAN CORPUSCULAR VOLUME 74 fL (80-100); MONOCYTES # (AUTO) 0.6 K/uL (0.1-1.0); MONOCYTES % (AUTO) 8.8 % (2.0-9.0); NEUTROPHILS # (AUTO) 4.5 K/uL (1.8-7.7); PLATELET COUNT (AUTO) 266 K/uL (150-450)
[2021-04-12 12:16] LABS: % IRON SATURATION 34.9 % (22-44)
[2021-04-12 12:20] LABS: GLUCOMETER DEV NAME(LOC) 5S.1; GLUCOSE,POINT OF CARE 216 MG/DL (70-110)
[2021-04-12 12:22] LABS: HEMOGLOBIN A1C 8.7 % (3.8-5.6)
[2021-04-12 12:28] LABS: ALBUMIN 2.9 g/dL (3.4-5.0); BILIRUBIN,TOTAL 0.2 mg/dL (0.1-1.0); CALCIUM, TOTAL 8.3 mg/dL (8.8-10.5); CHOL/HDL RATIO 6.5 (3.9-5.7); CREATININE 2.13 mg/dL (0.60-1.30); FREE T4 (FREE THYROXINE) 0.86 ng/dL (0.76-1.46); MAGNESIUM 1.4 mg/dL (1.80-2.40); PHOSPHORUS 4.2 mg/dL (2.5-4.9); POTASSIUM 5.4 mmol/L (3.5-5.1); THYROID STIMULATING HORMONE 2.32 uIU/mL (0.36-3.74); TOTAL PROTEIN, SERUM 6.2 g/dL (6.4-8.2)
[2021-04-12] MEDS: CefTRIAXone 1 GM/DEXTROSE 50 ML IV SCH (16:05)
[2021-04-12 16:06] VITALS: BP 144/87
[2021-04-12] MEDS ORDERED: SODIUM ZIRCONIUM CYCLOSILICATE 5 GM POWDER PACKET PO ONE (16:45)
[2021-04-12 18:33] LABS: GLUCOMETER DEV NAME(LOC) 5S.1; GLUCOSE,POINT OF CARE 210 MG/DL (70-110)
[2021-04-12 19:12] VITALS: BP 152/67
[2021-04-12] MEDS ORDERED: ATORVASTATIN CALCIUM 20 MG TABLET PO SCH (21:00)
[2021-04-12] MEDS ORDERED: -LIDODERM PATCH NOTE- MISC SCH (21:00)
[2021-04-12 22:02] LABS: GLUCOMETER DEV NAME(LOC) 5N.1C; GLUCOSE,POINT OF CARE 251 MG/DL (70-110)
[2021-04-13 00:07] VITALS: BP 151/79
[2021-04-13 00:27] VITALS: BP 151/79
[2021-04-13] MEDS: ACETAMINOPHEN 325 MG TABLET PO PRN ×2 (01:16→09:08)
[2021-04-13 01:39] LABS: CREATININE,URINE 45.8 mg/dL (30.0-125.0)
[2021-04-13 01:41] LABS: CREATININE,SERUM FOR CRCL 2.13 mg/dL (0.60-1.30)
[2021-04-13 03:37] VITALS: BP 144/71
[2021-04-13] MEDS: DOXYCYCLINE HYCLATE 100 MG in DEXTROSE 5%-WATER 100 ML IV SCH ×2 (05:45→18:00)
[2021-04-13] MEDS: HYDROCODONE/ACETAMINOPHEN 5-325 MG TABLET PO PRN ×2 (05:55→11:39)
[2021-04-13] MEDS: INSULIN LISPRO 100 UNITS/ML SQ PRN ×2 (05:58→11:43)
[2021-04-13 07:15] VITALS: BP 158/80
[2021-04-13 08:09] LABS: BASOPHILS % (AUTO) 0.8 % (0.0-2.0); EOSINOPHILS % (AUTO) 3.2 % (1.0-6.0); HEMATOCRIT 30.3 % (36-46); HEMOGLOBIN 9.6 g/dL (12.0-16.0); LYMPHOCYTES # (AUTO) 1.4 K/uL (1.0-4.8); LYMPHOCYTES % (AUTO) 19.8 % (22.0-44.0); MEAN CORPUSCULAR HEMOGLOBIN 23.5 pg (26.0-34.0); MEAN CORPUSCULAR HGB CONC 31.8 G/dL (31.0-37.0); MEAN CORPUSCULAR VOLUME 74 fL (80-100); MONOCYTES # (AUTO) 0.7 K/uL (0.1-1.0); NEUTROPHILS # (AUTO) 4.5 K/uL (1.8-7.7); NEUTROPHILS % (AUTO) 66.2 % (40.0-70.0); PLATELET COUNT (AUTO) 280 K/uL (150-450); RED BLOOD CELL COUNT(AUTO) 4.09 MIL/uL (4.00-5.20); RED CELL DISTRIBUTION WIDTH 14.2 % (11.5-14.5)
[2021-04-13 08:21] LABS: BILIRUBIN,TOTAL 0.2 mg/dL (0.1-1.0); CALCIUM, TOTAL 8.6 mg/dL (8.8-10.5); CREATININE 2.14 mg/dL (0.60-1.30); POTASSIUM 5.3 mmol/L (3.5-5.1); TOTAL PROTEIN, SERUM 6.5 g/dL (6.4-8.2)
[2021-04-13 09:00] LABS: PHOSPHORUS 4.2 mg/dL (2.5-4.9)
[2021-04-13 09:06] LABS: MAGNESIUM 1.3 mg/dL (1.80-2.40)
[2021-04-13] MEDS: ROSUVASTATIN CALCIUM 20 MG TABLET PO SCH (09:08)
[2021-04-13] MEDS: AmLODIPine BESYLATE 10 MG TABLET PO SCH (09:08)
[2021-04-13] MEDS: GABAPENTIN 100 MG CAPSULE PO SCH ×2 (09:08→16:42)
[2021-04-13] MEDS: CLOPIDOGREL BISULFATE 75 MG TABLET PO SCH (09:08)
[2021-04-13] MEDS: EZETIMIBE 10 MG TABLET PO SCH (09:08)
[2021-04-13] MEDS: PANTOPRAZOLE SODIUM 40 MG DR TABLET PO SCH (09:08)
[2021-04-13] MEDS: LIDOCAINE 5% TRANSDERMAL PATCH TD SCH (09:09)
[2021-04-13] MEDS: SODIUM CHLORIDE 0.9% 1,000 ML IV SCH (11:27)
[2021-04-13 11:41] VITALS: BP 155/85
[2021-04-13] MEDS ORDERED: MAGNESIUM SULFATE 2 GM/WATER 50 ML IV ONE (12:15)
[2021-04-13 12:23] LABS: GLUCOMETER DEV NAME(LOC) 5N.1C; GLUCOSE,POINT OF CARE 131 MG/DL (70-110)
[2021-04-13] MEDS ORDERED: DOXY-354 PO (13:20)
[2021-04-13 14:12] LABS: GLUCOMETER DEV NAME(LOC) 5S.1; GLUCOSE,POINT OF CARE 277 MG/DL (70-110)
[2021-04-13 15:42] VITALS: BP 139/74
[2021-04-13] MEDS: CefTRIAXone 1 GM/DEXTROSE 50 ML IV SCH (16:00)
== END 2021-04-13 18:10 | disposition home or self-care (01) | DRG 682 ==
LOC: EMS 13:58 → 5S 15:58
PROVIDERS: ADMIT Internal Medicine; ATTEND Internal Medicine
DX: N17.9 Acute kidney failure, unspecified (principal); J18.9 Pneumonia, unspecified organism; I20.0 Unstable angina; I13.10 Hypertensive heart and chronic kidney disease without heart failure, with stage 1 through stage 4 chronic kidney disease, or unspecified chronic kidney disease; N18.30 Chronic kidney disease, stage 3 unspecified; F51.04 Psychophysiologic insomnia; F32.9 Major depressive disorder, single episode, unspecified; E86.0 Dehydration; E78.5 Hyperlipidemia, unspecified; E78.00 Pure hypercholesterolemia, unspecified; E66.9 Obesity, unspecified; E87.5 Hyperkalemia; E11.319 Type 2 diabetes mellitus with unspecified diabetic retinopathy without macular edema; E11.21 Type 2 diabetes mellitus with diabetic nephropathy; E11.65 Type 2 diabetes mellitus with hyperglycemia; E11.22 Type 2 diabetes mellitus with diabetic chronic kidney disease; Z79.84 Long term (current) use of oral hypoglycemic drugs; Z79.4 Long term (current) use of insulin; Z79.899 Other long term (current) drug therapy; Z88.8 Allergy status to other drugs, medicaments and biological substances; Z88.1 Allergy status to other antibiotic agents; Z20.822 Contact with and (suspected) exposure to COVID-19
CPT/HCPCS: 71045; 76700; 80053; 80061; 81001; 81002; 81050; 82550; 82575; 82728; 82962; 83036; 83540; 83550; 83605; 83690; 83735; 83880; 83970; 84100; 84145; 84156; 84300; 84439; 84443; 84484; 84703; 85025; 87040; 87804; 90686; 93005; 93306; 99285; J0456; J0696; J1170; J2405; J3475; J3490; J7030; J7060; Q9967; 36415-L1; 36415-TC; G0008